=== PATIENT | male | born 1995 | race Caucasian/White ===

== ENCOUNTER 2017-08-05 23:11 | Emergency (ER) | payer BC, OTHER ==
[~2017-08-05] VITALS: Ht 182.9 cm; Wt 89.0 kg
[2017-08-05 23:16] VITALS: TEMP 37.1; Ht 182.9 cm; Wt 89.0 kg
--- NOTE | 2017-08-05 23:47 | EMERGENCY ROOM VISIT NOTE ---
History Report prepared by Shelley: Maria L Nogueira Under the Supervision of: Dr. Maya Sumner D.O. First contact with patient: 23:22 Chief Complaint: ABDOMINAL PAIN Stated Complaint: PAIN IN STOMACH, POSSIBLE APPENDIX History of Present Illness The patient is a 22 year old male who presents to the Emergency Room with complaints of worsening abdominal pain starting 3 days ago. The patient states that it is in the area over his appendix. He currently rates his pain as a 8/10 in severity. The patient complains of loss of appetite. The patient denies nausea, vomiting, diarrhea, sore throat, cough, leg cramping, leg swelling, any past surgeries, and any medical problems. Source of History: patient Onset: 3 days ago Position: abdomen Symptom Intensity: 8/10 Timing: worsening Associated Symptoms: No sorethroat, No cough, No nausea, No vomiting, No diarrhea Note: The patient complains of loss of appetite. The patient denies leg cramping and leg swelling. Review of Systems See HPI for pertinent positives & negatives. A total of 10 systems reviewed and were otherwise negative. Past Medical & Surgical Medical Problems: (1) No Known Active Medical Problems No past medical history. Family History Gallbladder disease Hypertension Social History Smoking Status: Current Every Day Smoker Alcohol Use: none Marital Status: in relationship Housing Status: lives with family Occupation Status: employed Current/Historical Medications No Active Prescriptions or Reported Meds Allergies Coded Allergies: No Known Allergies (Unverified , 04/02/11) Physical Exam Vital Signs Date Time Temp Pulse Resp B/P (MAP) Pulse Ox O2 Delivery O2 Flow Rate FiO2 08/06/17 01:43 67 18 130/71 97 Room Air 08/06/17 00:20 107 16 132/77 96 Room Air 08/05/17 23:16 37.1 118 18 144/66 97 Room Air Physical Exam HEENT: Head - normocephalic and atraumatic Pupils are equal, round, and reactive to light. Extraocular eye muscles are intact, and sclera are anicteric. Nose - moist nasal mucosa without discharge. Mouth - moist buccal mucosa. Oropharynx is nonerythematous and there is no tonsillar exudate or edema noted. Neck: Supple; no JVD, nuchal rigidity, cervical lymphadenopathy. Heart: Regular rate and rhythm. There is a normal S1 and S2 with no murmurs, clicks, or gallops appreciated. Lungs: Clear to auscultation bilaterally with no wheezes, rales, or rhonchi. Abdomen: RLQ tenderness with guarding and slight rebound. Soft, nondistended, with good bowel sounds. There are no palpable pulsatile masses or hepatosplenomegaly. There is no rigidity noted. Extremities: No evidence of cyanosis, clubbing, or edema. There are easily palpable peripheral pulses. Skin: warm and dry with good turgor and no rashes. Medical Decision & Procedures ER Provider Diagnostic Interpretation: Radiology results as stated below per my review and the radiologist's interpretation: ULTRASOUND OF THE APPENDIX CLINICAL HISTORY: Right lower quadrant abdominal pain. COMPARISON STUDY: No priors. FINDINGS: Real-time, grayscale, and color flow sonography of the right lower quadrant was performed to assess for acute appendicitis. The appendix was not discretely visualized. No inflammatory changes or free fluid are seen in the right lower quadrant. No lymphadenopathy was seen. IMPRESSION: Nonvisualization of the appendix. Note that this does not exclude acute appendicitis. Electronically signed by: Shiv Melissa M.D. 08/06/2017 12:21 AM Dictated Date/Time: 08/06/2017 12:[address] SCAN OF THE ABDOMEN AND PELVIS WITH IV CONTRAST CLINICAL HISTORY: Right lower quadrant abdominal pain. COMPARISON STUDY: Right lower quadrant ultrasound dated 08/06/2017. TECHNIQUE: Following the IV administration of 93 cc of Optiray 320, CT scan of the abdomen and pelvis is performed from the lung bases to the proximal femora. Images are reviewed in the axial, sagittal, and coronal planes. IV contrast was administered without complication. A dose lowering technique was utilized adhering to the principles of ALARA. CT DOSE: 349.97 mGy.cm FINDINGS: Lung bases: The heart is normal in size and without pericardial effusion. The lung bases are clear. Liver: The contrast-enhanced liver is normal in size, contour, and attenuation. There is no intrahepatic biliary ductal dilatation. The hepatic veins and portal veins are patent. Gallbladder: Unremarkable. Spleen: Normal in size and attenuation. Pancreas: Unremarkable. Adrenal glands: Unremarkable. Kidneys: The contrast enhanced kidneys are normal in size and without hydronephrosis. The kidneys enhance symmetrically. Abdominal vasculature: The abdominal aorta is normal in course and caliber. Bowel: The small bowel and colon are normal in course and caliber. The appendix is well-visualized and normal. Peritoneum: There is no intraperitoneal free air or abdominal ascites. There is a small fat-containing umbilical hernia. There is mild inflammatory stranding and trace fluid seen within the mesenteric fat anterior to the ascending colon. This is seen best seen on axial image #209. There is no wall thickening identified in the adjacent colon and no diverticula are seen in this region. Lymphadenopathy: Prominent mesenteric lymph nodes in the right lower quadrant are likely on a reactive basis. Pelvic viscera: The bladder, prostate, and seminal vesicles are normal as visualized. Skeletal structures: No lytic or blastic lesions are seen. IMPRESSION: 1. There is inflammatory stranding and trace fluid seen within the mesenteric fat anterior to the ascending colon. This appears discrete from the colon and likely represents a small omental infarct. Diverticulitis is considered unlikely as there is no associated colonic wall thickening and no diverticula are seen in this region. 2. The appendix is well-visualized and normal, and is remote from the inflammatory process. Electronically signed by: Shiv Melissa M.D. 08/06/2017 1:18 AM Dictated Date/Time: 08/06/2017 1:07 AM Laboratory Results 08/05/17 23:33 Red Blood Count 5.09, Mean Corpuscular Volume 86.4, Mean Corpuscular Hemoglobin 31.4, Mean Corpuscular Hemoglobin Concent 36.4, Mean Platelet Volume 10.8, Neutrophils (%) (Auto) 58.6, Lymphocytes (%) (Auto) 28.0, Monocytes (%) (Auto) 10.8, Eosinophils (%) (Auto) 2.0, Basophils (%) (Auto) 0.4, Neutrophils # (Auto ) 7.03, Lymphocytes # (Auto) 3.36, Monocytes # (Auto) 1.30, Eosinophils # (Auto ) 0.24, Basophils # (Auto) 0.05 08/05/17 23:33 Test 08/05/17 23:33 White Blood Count 12.00 K/uL (4.8-10.8) Red Blood Count 5.09 M/uL (4.7-6.1) Hemoglobin 16.0 g/dL (14.0-18.0) Hematocrit 44.0 % (42-52) Mean Corpuscular Volume 86.4 fL (80-100) Mean Corpuscular Hemoglobin 31.4 pg (25-34) Mean Corpuscular Hemoglobin Concent 36.4 g/dl (32-36) Platelet Count 223 K/uL (130-400) Mean Platelet Volume 10.8 fL (7.4-10.4) Neutrophils (%) (Auto) 58.6 % Lymphocytes (%) (Auto) 28.0 % Monocytes (%) (Auto) 10.8 % Eosinophils (%) (Auto) 2.0 % Basophils (%) (Auto) 0.4 % Neutrophils # (Auto) 7.03 K/uL (1.4-6.5) Lymphocytes # (Auto) 3.36 K/uL (1.2-3.4) Monocytes # (Auto) 1.30 K/uL (0.11-0.59) Eosinophils # (Auto) 0.24 K/uL (0-0.5) Basophils # (Auto) 0.05 K/uL (0-0.2) RDW Standard Deviation 40.8 fL (36.4-46.3) RDW Coefficient of Variation 12.7 % (11.5-14.5) Immature Granulocyte % (Auto) 0.2 % Immature Granulocyte # (Auto) 0.02 K/uL (0.00-0.02) Urine Color YELLOW Urine Appearance CLEAR (CLEAR) Urine pH 5.5 (4.5-7.5) Urine Specific [place] 1.023 (1.000-1.030) Urine Protein NEG (NEG) Urine Glucose (UA) NEG (NEG) Urine Ketones NEG (NEG) Urine Occult Blood NEG (NEG) Urine Nitrite NEG (NEG) Urine Bilirubin NEG (NEG) Urine Urobilinogen NEG (NEG) Urine Leukocyte Esterase NEG (NEG) Anion Gap 8.0 mmol/L (3-11) Est Creatinine Clear Calc Drug Dose 105.2 ml/min Estimated GFR () 97.3 Estimated GFR (Non- 84.0 BUN/Creatinine Ratio 16.6 (10-20) Calcium Level 9.1 mg/dl (8.5-10.1) Chemistry Specimen Hemolysis Laboratory results per my review. Medications Administered Medications (Trade) Dose Ordered Sig/Gui Route Start Time Stop Time Status Last Admin Dose Admin Ketorolac Tromethamine (Toradol Inj) 30 mg NOW STAT IV 08/06/17 01:35 08/06/17 01:36 DC 08/06/17 01:39 30 MG Procedure 0135: Ordered Toradol Inj 30 mg IV. ED Course 2323: Past medical records reviewed. The patient was evaluated in room B10. A complete history and physical exam was performed. An IV lock was initiated and labs were drawn as above. The patient declined wanting anything for pain at this time. He will go for ultrasound to rule out appendicitis. 0050: I reevaluated the patient and his pain is still manageable. The appendix could not be identified on ultrasound. I notified him that he is going to need a CT. 0129: Upon reevaluation, the patient is doing okay. He is going to get a dose of Toradol. I discussed findings and results with him. He verbalized agreement of the treatment plan. The patient was discharged home. 0135: Ordered Toradol Inj 30 mg IV. Medical Decision The patient is a 22 year old male who presents to the Emergency Room with complaints of worsening abdominal pain starting 3 days ago. Differential diagnoses include colitis, diverticulitis, appendicitis, cystitis, pyelonephritis. LABS: White Count 12 Stable H&H BUN 20 Creatine 1.2 Glucose 102 Urinalysis is clear This is a 22-year-old male patient who presents the emergency department with a 3 day history of right lower quadrant abdominal pain. The patient has a slight leukocytosis. The appendix could not be visualized on ultrasound. CT scan of the abdomen and pelvis revealed a normal-appearing appendix according to radiology with a probable omental infarction in that area. I explained these findings to the patient and his family. He was given a dose of Toradol and will be discharged home. I have asked him to return to the emergency department for any worsening symptoms are to follow-up with his PCP if the pain persists. Medication Reconcilliation Current Medication List: was personally reviewed by me Blood Pressure Screening Patient's blood pressure: Normal blood pressure Blood pressure disposition: Did not require urgent referral Impression Primary Impression: Omental infarction Scribe Attestation The scribe's documentation has been prepared under my direction and personally reviewed by me in its entirety. I confirm that the note above accurately reflects all work, treatment, procedures, and medical decision making performed by me. Departure Information Dispostion Home / Self-Care Prescriptions No Active Prescriptions or Reported Meds Referrals No Doctor, Assigned (PCP) Forms HOME CARE DOCUMENTATION FORM, IMPORTANT VISIT INFORMATION Patient Instructions My Prifloat Additional Instructions Rest. Avoid strenuous activity. Use motrin - 800mg every 6-8 hours with food for pain Return to the ER for worsening symptoms.
[2017-08-05 23:51] LABS: BASO % 0.4 %; BASO ABS # 0.05 K/uL (0-0.2); EOS ABS # 0.24 K/uL (0-0.5); IG# 0.02 K/uL (0.00-0.02); LYMPH ABS # 3.36 K/uL (1.2-3.4); MEAN CELL VOLUME 86.4 fL (80-100); MEAN CORPUSCULAR HEMOGLOBIN 31.4 pg (25-34); MEAN CORPUSCULAR HGB CONC 36.4 g/dl (32-36); MEAN PLATELET VOLUME 10.8 fL (7.4-10.4); MONO % 10.8 %; NEUT % 58.6 %; NEUT ABS # 7.03 K/uL (1.4-6.5); PLATELET COUNT 223 K/uL (130-400); RED CELL DISTRIBUTION WIDTH CV 12.7 % (11.5-14.5); RED CELL DISTRIBUTION WIDTH SD 40.8 fL (36.4-46.3)
--- NOTE | 2017-08-06 00:23 | DIAGNOSTIC IMAGING REPORT ---
ULTRASOUND OF THE APPENDIX CLINICAL HISTORY: Right lower quadrant abdominal pain. COMPARISON STUDY: No priors. FINDINGS: Real-time, grayscale, and color flow sonography of the right lower quadrant was performed to assess for acute appendicitis. The appendix was not discretely visualized. No inflammatory changes or free fluid are seen in the right lower quadrant. No lymphadenopathy was seen. IMPRESSION: Nonvisualization of the appendix. Note that this does not exclude acute appendicitis. Electronically signed by: Shiv Melissa M.D. 08/06/2017 12:21 AM Dictated Date/Time: 08/06/2017 12:21 AM
[2017-08-06 00:24] LABS: CALCIUM 9.1 mg/dl (8.5-10.1); CREATININE 1.23 mg/dl (0.60-1.40); POTASSIUM 3.9 mmol/L (3.5-5.1)
[2017-08-06] MEDS ORDERED: OPTIRAY 320 IV PRN (01:00)
--- NOTE | 2017-08-06 01:19 | DIAGNOSTIC IMAGING REPORT ---
CT SCAN OF THE ABDOMEN AND PELVIS WITH IV CONTRAST CLINICAL HISTORY: Right lower quadrant abdominal pain. COMPARISON STUDY: Right lower quadrant ultrasound dated 08/06/2017. TECHNIQUE: Following the IV administration of 93 cc of Optiray 320, CT scan of the abdomen and pelvis is performed from the lung bases to the proximal femora. Images are reviewed in the axial, sagittal, and coronal planes. IV contrast was administered without complication. A dose lowering technique was utilized adhering to the principles of ALARA. CT DOSE: 349.97 mGy.cm FINDINGS: Lung bases: The heart is normal in size and without pericardial effusion. The lung bases are clear. Liver: The contrast-enhanced liver is normal in size, contour, and attenuation. There is no intrahepatic biliary ductal dilatation. The hepatic veins and portal veins are patent. Gallbladder: Unremarkable. Spleen: Normal in size and attenuation. Pancreas: Unremarkable. Adrenal glands: Unremarkable. Kidneys: The contrast enhanced kidneys are normal in size and without hydronephrosis. The kidneys enhance symmetrically. Abdominal vasculature: The abdominal aorta is normal in course and caliber. Bowel: The small bowel and colon are normal in course and caliber. The appendix is well-visualized and normal. Peritoneum: There is no intraperitoneal free air or abdominal ascites. There is a small fat-containing umbilical hernia. There is mild inflammatory stranding and trace fluid seen within the mesenteric fat anterior to the ascending colon. This is seen best seen on axial image #209. There is no wall thickening identified in the adjacent colon and no diverticula are seen in this region. Lymphadenopathy: Prominent mesenteric lymph nodes in the right lower quadrant are likely on a reactive basis. Pelvic viscera: The bladder, prostate, and seminal vesicles are normal as visualized. Skeletal structures: No lytic or blastic lesions are seen. IMPRESSION: 1. There is inflammatory stranding and trace fluid seen within the mesenteric fat anterior to the ascending colon. This appears discrete from the colon and likely represents a small omental infarct. Diverticulitis is considered unlikely as there is no associated colonic wall thickening and no diverticula are seen in this region. 2. The appendix is well-visualized and normal, and is remote from the inflammatory process. Electronically signed by: Shiv Melissa M.D. 08/06/2017 1:18 AM Dictated Date/Time: 08/06/2017 1:07 AM
[2017-08-06] MEDS ORDERED: KETOROLAC TROMETHAMINE 30 MG/ML VIAL IV STA (01:35)
[2017-08-06 01:43] VITALS: BP 130/71; PULSE 67; O2SAT 97
== END 2017-08-06 01:47 | disposition home or self-care (01) ==
LOC: C.EDB 23:12
DX: K55.069 Acute infarction of intestine, part and extent unspecified (principal); Z82.49 Family history of ischemic heart disease and other diseases of the circulatory system; F17.210 Nicotine dependence, cigarettes, uncomplicated